=== PATIENT | female | born 1995 | race African-American/Black ===

== ENCOUNTER 2016-12-11 11:47 | Emergency (ER) | payer OTHER | END 2016-12-11 12:52 | disposition home or self-care (01) | LOC: ERS 11:47 | DX: S76.912A Strain of unspecified muscles, fascia and tendons at thigh level, left thigh, initial encounter (principal); F32.9 Major depressive disorder, single episode, unspecified; Z79.899 Other long term (current) drug therapy; V49.40XA Driver injured in collision with unspecified motor vehicles in traffic accident, initial encounter | CPT/HCPCS: 99283 ==